=== PATIENT | female | born 1965 | race Caucasian/White ===

== ENCOUNTER 2022-05-15 07:51 | Emergency (ER) | payer OTHER, SELFPAY ==
[2022-05-15] VITALS (27 sets, daily range): BP systolic 120–144; BP diastolic 63–81; PULSE 54–82; RESP 16; TEMP 36.3; O2SAT 93–99; BMI 28.6
--- NOTE | 2022-05-15 08:25 | CT_ITS ---
Final Report Patient: JAVIER GREENE Facility:?[facility] Patient ID:?[id number] Site Patient ID:?[id number]. Site :?[id number] Study:?CT ST Neck w/ 84cc [id number] 10:39:46 AM Ordering Physician:Connie Albright Final Report: Indication: Swelling after oral surgery, history of lymph node dissection and partial glossectomy. Technique: Volumetric multidetector CT images of the cervical soft tissues were obtained after the administration of low osmolar intravenous contrast. 84 cc Isovue 370 low osmolar intravenous contrast Comparison: CT soft tissue neck April 29, 2022 Findings: The partially visualized brain parenchyma is normal in attenuation without evidence of abnormal enhancement. The orbits and their contents are within normal limits. There is minimal mucosal thickening within the paranasal sinuses with mild bubbly secretions in the left maxillary sinus. The mastoid air cells are clear. The nasopharynx is unremarkable. The fossae of Rosenmuller are clear. The oropharynx is unremarkable. There is moderate thickening of the hypopharyngeal and base of tongue mucosa status post glossectomy with thickening of the epiglottis and aryepiglottic folds. There is extensive postoperative change of the submandibular and floor of mouth spaces with resection of the bilateral submandibular glands and lymph node dissection changes. There is demonstration of a large submandibular air and fluid collection measuring 8.0 x 3.1 centimeters in AP and transverse dimensions respectively. Additional minimal foci of air are seen within the left greater than right cervical chains consistent with lymph node dissections. The vocal folds are nonthickened with symmetrical appearance. The thyroid gland is normal in attenuation. There is no evidence of pathologically enlarged cervical lymph node. The jugular veins are patent. The carotid arteries demonstrate no significant atherosclerotic narrowing. The lung apices are clear. The cervical vertebral body heights are grossly maintained with minimal endplate Schmorl`s defects. There is anterolisthesis of C3 on C4 and C4 on C5. There is mild facet arthrosis. Impression: Interval postoperative changes of the tongue, submandibular space and floor of mouth with interval bilateral submandibular gland resection, partial glossectomy, and lymph node dissections with demonstration of a large postoperative air and fluid collection within the submandibular space measuring up to 8.0 centimeters. This finding may represent a developing postoperative seroma and/or early abscess. Consider follow-up with ultrasound guided interrogation and/or aspiration if there is persistent clinical concern for infectious changes. No evidence of significant fluid within the pharynx or effacement of the airway. Mild nonspecific thickening of the hypo pharyngeal mucosa likely representing postoperative and/or minimal inflammatory changes. Please note that all CT scans at this facility use dose modulation, iterative reconstruction, and/or weight-based dosing when appropriate to reduce radiation dose to as low as reasonably achievable. Dictated by Keenan Martínez MD @ 05/15/2022 11:28:22 AM (Electronic Signature)
[2022-05-15 08:47] LABS: Lactate* 0.7 mmol/L (0.5-1.9)
[2022-05-15 08:50] LABS: Basophils Absolute Auto 0.02 K/uL (0.00-0.30); Basophils Percent Auto 0.3 % (0.0-3.0); Eosinophils Absolute Auto 0.15 K/uL (0.00-0.50); Hematocrit 39.1 % (33.0-51.0); Hemoglobin* 13.1 gm/dL (12.0-16.0); Immature Granulocytes Abs Auto 0.02 K/uL (0.00-0.30); Immature Granulocytes Pct Auto 0.3 %; Lymphocytes Percent Auto 18.6 % (20-44); Mean Corpuscular HGB Conc 34 gm/dL (32-36); Mean Corpuscular Hemoglobin 30 pg (26-34); Mean Corpuscular Volume 89 fL (80-100); Monocytes Percent Auto 7.2 % (0.0-11.0); Neutrophils Absolute Auto 5.45 K/uL (1.7-7.0); Neutrophils Percent Auto 71.6 % (42.0-72.0); Platelet Count* 127 K/uL (140-440); RDW Coefficient of Variation % 12.5 % (11.5-15.5); Red Blood Count 4.39 m/uL (4.00-5.20)
[2022-05-15] MEDS: HYDROmorphone 0.5 mg/0.5 ml inj IVP ×2 (08:52→12:57)
[2022-05-15 08:53] LABS: Slide Review Reflex No
[2022-05-15 09:03] LABS: Chloride* 104 mmol/L (96-114)
[2022-05-15] MEDS: 0.9 % SODIUM CHLORIDE 500 ML 500 ML IV (09:03)
[2022-05-15] MEDS: METHYLPREDNISOLONE SOD SUCC 62.5 MG/ML (125) 60 MG IVP (09:03)
[2022-05-15 09:04] LABS: Potassium* 3.6 mmol/L (3.6-5.1); Sodium* 139 mmol/L (135-149)
[2022-05-15 09:06] LABS: Creatinine* 0.5 mg/dL (0.5-1.5); Est. Creatinine Clearance* 113.05; Estimated Glomerular Filt Rate 110 ml/min
[2022-05-15 09:07] LABS: Blood Urea Nitrogen* 8 mg/dL (7-30); Calcium* 8.5 mg/dL (8.4-10.6); Carbon Dioxide* 32 mmol/L (20-32); Glucose* 150 mg/dL (60-115)
--- NOTE | 2022-05-15 09:08 | ED_ITS ---
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 Pt has a history of lichen planus and is on chronic corticosteroids. Pt has not been taking her prednisone and now the remainder of her tongue is severely swollen. Pt felt short of breath due to the tongue swelling this morning and comes in back ambulance. Pt has extreme pain in her tongue and the remainder of her mouth. Pt has had no fever or chills, nausea or vomiting, cough or rash. Pt has a large incision on the front of her neck from the surgery and notes that the area has become very swollen due to large lymph nodes. Pt's vital are stable on room air upon arrival. Related Data Home Medications Medication Instructions Recorded Confirmed acetaminophen 500 mg tablet 500 mg PO Q6H PRN 05/15/22 05/15/22 aspirin 81 mg tablet,delayed 81 mg PO DAILY 05/15/22 05/15/22 release atorvastatin 40 mg tablet 40 mg PO QHS 05/15/22 05/15/22 hydromorphone 2 mg tablet 2 mg PO Q4H 05/15/22 05/15/22 ibuprofen 600 mg tablet 600 mg PO Q6H 05/15/22 05/15/22 losartan 50 mg tablet 50 mg PO DAILY 05/15/22 05/15/22 ondansetron 4 mg disintegrating 4 mg PO Q6H 05/15/22 05/15/22 tablet pantoprazole 40 mg tablet,delayed 40 mg PO DAILY 05/15/22 05/15/22 release prednisone 10 mg tablet 10 mg feeding tube DIRECTED 05/15/22 05/15/22 Previous Rx's Medication Instructions Recorded prednisone 20 mg tablet 20 mg PO DAILY #20 tabs 05/15/22 Allergies Allergy/AdvReac Type Severity Reaction Status Date / Time adhesive tape Allergy Severe Verified 05/15/22 09:23 bupropion Allergy Severe Verified 05/15/22 09:23 desvenlafaxine Allergy Severe Verified 05/15/22 09:23 penicillin G Allergy Severe Verified 05/15/22 09:23 pregabalin Allergy Severe Verified 05/15/22 09:23 sertraline Allergy Severe Verified 05/15/22 09:23 mushrooms Allergy Severe Uncoded 05/15/22 09:23 Review of Systems Status of ROS: Reports: 10 or more systems reviewed and unremarkable except as noted in History and below [facility] Medical History (Updated 05/15/22 @ 13:16 by Jose Ramon Gamble MD) GERD (gastroesophageal reflux disease) Head and neck cancer Hyperlipidemia Hypertension Lichen planus Social History Smoking Status: Former smoker What tobacco products do you use: cigarettes Smoking packs per day: 1 Smoking cigarettes per day: 20.0 Years smoked: 30 Smoking pack-years: 30.00 Smoking quit date/years: >15 years ago How often do you have a drink containing alcohol: never AUDIT-C Alcohol total score: 0 Non-prescribed substance use: denies use service: No Exam Narrative: Exam Narrative: EXAM GENERAL: Patient appears uncomfortable with swelling of the anterior head and neck EYES: No scleral icterus. ENT: Significant oral swelling most pronounced in the residual tongue with erythematous mucosa. Anterior neck incision with surrounding lymphadenopathy noted. LYMPH: No supraclavicular or cervical lymphadenopathy. SKIN: Visible skin seen during exam normal or with benign process only. EXT: No dependent lower extremity pedal edema. HEART: Regular rate and rhythm with no murmurs, rubs, or gallops. LUNGS: Clear to auscultation bilaterally with no crackles or wheezes. ABD: Soft, non tender, non distended. PSYCH: Good eye contact, speech is not pressured. Const: Vital Signs, click to edit/add: Vital Signs - 24 hr 05/15/22 08:05 05/15/22 07:58 05/15/22 07:59 Temperature 97.4 F L Pulse Rate 76 70 Pulse Rate [Pulse Oximeter] 81 Respiratory Rate 16 Blood Pressure 144/77 H Blood Pressure [Le ft Upper Arm] 144/77 H Pulse Oximetry 98 94 94 Oxygen Delivery Me thod Room Air 05/15/22 08:00 05/15/22 08:14 05/15/22 08:15 Temperature 97.4 F L Pulse Rate 69 71 68 Pulse Rate [Pulse Oximeter] Respiratory Rate 16 Blood Pressure 142/76 H Blood Pressure [Le ft Upper Arm] Pulse Oximetry 97 94 96 Oxygen Delivery Me thod 05/15/22 08:30 05/15/22 08:32 05/15/22 09:00 Temperature Pulse Rate 62 61 59 L Pulse Rate [Pulse Oximeter] Respiratory Rate Blood Pressure 139/63 127/74 Blood Pressure [Le ft Upper Arm] Pulse Oximetry 95 96 97 Oxygen Delivery Me thod 05/15/22 09:01 05/15/22 09:02 05/15/22 09:35 Temperature Pulse Rate 63 60 66 Pulse Rate [Pulse Oximeter] Respiratory Rate Blood Pressure 130/69 Blood Pressure [Le ft Upper Arm] Pulse Oximetry 93 96 98 Oxygen Delivery Me thod 05/15/22 09:36 05/15/22 10:00 Temperature Pulse Rate 64 55 L Pulse Rate [Pulse Oximeter] Respiratory Rate Blood Pressure Blood Pressure [Le ft Upper Arm] Pulse Oximetry 96 97 Oxygen Delivery Me thod Course Course Hospital Course: Pt seen and examined. Spoke with Oral surgery at [place]. Soft tissue CT with contrast ordered along with CBC, BMP, Lactate. Saline lock placed. Normal saline bolus given. Oral Tylenol and IV Dilaudid given. Reevaluation(s) Reevaluation #1: Labs reassuring. CT of neck soft tissue showed post operative findings. 8 cm soft tissue mass noted. Pt given IV fluids, Dilaudid 0.5 mg twice as well as tylenol ellixer and solumedrol 60. Time: 13:09 Consultations Consultation #1: Case discussed with oral surgery at [place]. Images pushed to [place]. They feel the airway is not in jeopardy. 8 cm soft tissue mass is a result of drain. They recommend discharge with outpt follow up. Time: 13:10 Vital Signs Vital signs: Initial Vital Signs Pulse Rate 76 05/15/22 07:58 Blood Pressure 144/77 H 05/15/22 07:58 Blood Pressure Mean 99 05/15/22 07:58 Pulse Oximetry 94 05/15/22 07:58 Vital Signs Pulse Rate 76 05/15/22 07:58 Blood Pressure 144/77 H 05/15/22 07:58 Pulse Oximetry 94 05/15/22 07:58 Temperature 97.4 F L 05/15/22 08:14 Pulse Rate 55 L 05/15/22 10:00 Respiratory Rate 16 05/15/22 08:14 Blood Pressure 130/69 05/15/22 09:02 Pulse Oximetry 97 02/02/23 10:00 Oxygen Delivery Method 05/15/22 08:05 Medical Decision Making MDM Narrative Medical decision making narrative: Pt with a recent glossectomy who presents with severe pain. No signs of infection. Pt has a history of chronic prednisone use and has not been taking the prednisone. Pt given normal saline, dilaudid, solumedrol and tylenol cheikhixer. Consulted multiple times with [place] [facility] and pushed the films to them. They believe this to be standard post op findings and no jeopardy of the airway. Recommended discharge with outpt follow up. I did send in prednisone 20 mg to the pt's pharmacy. I reviewed the signs of airway comprimise with pt and family. Pt has been medically stable on room air with us. Close follow up and continued care recommended. Differential Diagnosis Differential Diagnosis: Airway obstruction, Epiglottitis, Abscess, Post op changes, Infection, Medical Records Medical records reviewed: Yes I reviewed the patient's medical records Lab Data Labs: Lab Results 05/15/22 05/15/22 05/15/22 Range/Units 08:39 08:39 08:39 WBC 7.60 (4.50-11.00) K/uL RBC 4.39 (4.00-5.20) m/uL Hgb 13.1 (12.0-16.0) gm/dL Hct 39.1 (33.0-51.0) % MCV 89 (80-100) fL MCH 30 (26-34) pg MCHC 34 (32-36) gm/dL RDW Coeff of Alex 12.5 (11.5-15.5) % Plt Count 127 L (140-440) K/uL Neut % (Auto) 71.6 (42.0-72.0) % Lymph % (Auto) 18.6 L (20-44) % Leon % (Auto) 7.2 (0.0-11.0) % Eos % (Auto) 2.0 (0.0-7.0) % Baso % (Auto) 0.3 (0.0-3.0) % Neut # (Auto) 5.45 (1.7-7.0) K/uL Lymph # (Auto) 1.40 (0.90-2.90) K/uL Leon # (Auto) 0.50 (0.00-0.90) K/UL Eos # (Auto) 0.15 (0.00-0.50) K/uL Baso # (Auto) 0.02 (0.00-0.30) K/uL Sodium 139 (135-149) mmol/L Potassium 3.6 (3.6-5.1) mmol/L Chloride 104 (96-114) mmol/L Carbon Dioxide 32 (20-32) mmol/L BUN 8 (7-30) mg/dL Creatinine 0.5 (0.5-1.5) mg/dL Estimated Creat Clear 113.05 Estimated GFR 110 ml/min Glucose 150 H (60-115) mg/dL Lactate 0.7 (0.5-1.9) mmol/L Calcium 8.5 (8.4-10.6) mg/dL Discharge Plan Discharge Clinical Impression: Post-op pain Patient Disposition: Home, Self-Care Condition: Stable Instructions: Pain Management (ED) Additional Instructions: Continue current care Follow up as directed Prednisone as prescribed Activity Level: Activity as Tolerated Discharge Diet: Regular Prescriptions: New prednisone 20 mg tablet 20 mg PO DAILY Qty: 20 0RF No Action hydromorphone 2 mg tablet 2 mg PO Q4H ibuprofen 600 mg tablet 600 mg PO Q6H acetaminophen 500 mg tablet 500 mg PO Q6H PRN atorvastatin 40 mg tablet 40 mg PO QHS aspirin 81 mg tablet,delayed release (DR/EC) 81 mg PO DAILY losartan 50 mg tablet 50 mg PO DAILY ondansetron 4 mg tablet,disintegrating 4 mg PO Q6H pantoprazole 40 mg tablet,delayed release (DR/EC) 40 mg PO DAILY prednisone 10 mg tablet 10 mg feeding tube DIRECTED Rx Instructions: see taper instructions Follow Up/Referrals: Mally Couch MD [Primary Care Provider] - Stand Alone Forms: [employer] Info Instructions
[2022-05-15] MEDS: ACETAMINOPHEN 160 MG/5 ML CUP 640 MG PO (09:09)
--- NOTE | 2022-05-15 13:30 | ED.NURSE ---
Patient was discharged home with son and daughter in law. all questions answered. Prescription for prednisone sent into pharmacy.
== END 2022-05-15 13:31 | disposition home or self-care (01) ==
PROVIDERS: Emergency Provider Internal Medicine; PCP Family Medicine
DX: G89.18 Other acute postprocedural pain (principal)
CPT/HCPCS: 36415; 70491; 80048; 83605; 85025; 96361; 96374; 96375; 96376; 99283; 99284; 99285; A9270; J1170; J2930; J7120; Q9967